=== PATIENT | male | born 1965 | race Hispanic/Latino ===

== ENCOUNTER 2020-04-11 18:43 | Emergency (ER) | payer OTHER ==
[2020-04-11] MEDS ORDERED: ACETAMINOPHEN EXTRA STRENGTH 500 MG TABLET ONE (18:52)
[2020-04-11] MEDS ORDERED: ALBUTEROL INHALER 90MCG/INH IH ONE (19:31)
== END 2020-04-11 20:13 | disposition home or self-care (01) ==
LOC: EDH 18:43
DX: R50.9 Fever, unspecified (principal); R05 Cough; I10 Essential (primary) hypertension; Z20.828 Contact with and (suspected) exposure to other viral communicable diseases; E78.00 Pure hypercholesterolemia, unspecified